=== PATIENT | male | born 1995 | race Two or more races ===

== ENCOUNTER 2022-04-07 10:26 | Emergency (ER) | payer BC ==
[~2022-04-07] VITALS: Ht 185.4 cm; Wt 90.7 kg
[~2022-04-07 10:26] MED LIST: KETO10TA2 PO
== END 2022-04-07 11:55 | disposition home or self-care (01) ==
LOC: ER 10:26
DX: J02.8 Acute pharyngitis due to other specified organisms (principal); Z20.822 Contact with and (suspected) exposure to COVID-19; B96.89 Other specified bacterial agents as the cause of diseases classified elsewhere